=== PATIENT | male | born 1995 | race Two or more races ===

== ENCOUNTER 2024-12-14 18:43 | Emergency (ER) | payer BC, MEDICAID, OTHER ==
[~2024-12-14] VITALS: Ht 177.8 cm; Wt 87.5 kg
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
[2024-12-14 19:35] VITALS: BP 129/75; PULSE 92; RESP 15; TEMP 98.2; O2SAT 95
[2024-12-14] MEDS: HYDROcodone-ACET 5/325MG TAB PO ONE (19:44)
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
[2024-12-14] MEDS: LIDOCAINE 1% HCL (LOCAL ANESTH.) INJ 20ML MDV ID ONE ×2 (20:32→22:50)
[2024-12-14] MEDS: IBUPROFEN 800 MG TAB PO ONE (22:50)
[2024-12-15] MEDS ORDERED: AUG875T PO (00:40)
[2024-12-15] MEDS ORDERED: IBUP-1456 PO (00:40)
== END 2024-12-15 00:39 | disposition home or self-care (01) ==
LOC: ER 18:43
DX: S61.411A Laceration without foreign body of right hand, initial encounter (principal); S01.81XA Laceration without foreign body of other part of head, initial encounter; X58.XXXA Exposure to other specified factors, initial encounter; Y93.89 Activity, other specified; Y92.89 Other specified places as the place of occurrence of the external cause; Y99.8 Other external cause status
CPT/HCPCS: 12001; 12011; 73130; 99283; J2003